=== PATIENT | female | born 1935 | race Caucasian/White ===

== ENCOUNTER → 2018-01-28 | Outpatient (CLI) | payer MEDICARE ==
[~2018-01-28] MED LIST: ACE500 PO; AMLO2.5T75 PO; ASCO500C9 PO; ASP81 PO; ASPI-1471 PO; ATOR40TA69 PO; BACDS PO; EZET1TAB53 PO; HCTZ25 PO; LANI SUBQ; LEVO-85 PO; LOR5/325 PO; LOSA100T67 PO; MAGN500C10 PO; METO25TA93 PO; NIA500 PO; NOVOLOG SUBQ; OMEG500C5 PO; ONDA4TAB97 PO; PREG50CA48 PO; TRAM-420 PO; [UNRECOGNIZED DRUG - CODE] PO; [UNRECOGNIZED DRUG - OTHER]; [UNRECOGNIZED DRUG - OTHER]
[2018-01-28 11:23] LABS: LDL CHOLESTEROL 201 mg/dl
[2018-01-28 11:24] LABS: PLATELET COUNT, AUTOMATED 415 K/uL (150-450)
== END ==
LOC: LAB 10:28
PROVIDERS: ATTEND Physician Assistant Medical
DX: E78.00 Pure hypercholesterolemia, unspecified (principal); E11.9 Type 2 diabetes mellitus without complications; Z79.4 Long term (current) use of insulin
CPT/HCPCS: 36415; 82040; 82043; 82247; 82310; 82374; 82435; 82465; 82565; 82947; 83036; 83718; 84075; 84132; 84155; 84295; 84450; 84460; 84478; 84520; 85025

== ENCOUNTER → 2018-06-30 | Outpatient (CLI) | payer MEDICARE | LOC: LAB 09:39 | PROVIDERS: ATTEND Physician Assistant Medical | DX: E11.42 Type 2 diabetes mellitus with diabetic polyneuropathy (principal); Z79.4 Long term (current) use of insulin | CPT/HCPCS: 36415; 82040; 82247; 82310; 82374; 82435; 82565; 82947; 83036; 84075; 84132; 84155; 84295; 84450; 84460; 84520 ==

== ENCOUNTER 2018-08-08 12:22 | Emergency (ER) | payer MEDICARE ==
[~2018-08-08 12:22] MED LIST changes: -GABA-549 PO
--- NOTE | 2018-08-08 12:37 | EKG ---
FACILITY: [facility] - [place] PATIENT NAME: DWIGHT POSADAS : [id number] MR: [id number] V: [id number] EXAM DATE: ORDERING PHYSICIAN: MORENITA MOSQUERA TECHNOLOGIST: Test Reason : 3RD DEGREE BLOCK Blood Pressure : / mmHG Vent. Rate : 027 BPM Atrial Rate : 357 BPM P-R Int : 000 ms QRS Dur : 130 ms QT Int : 734 ms P-R-T Axes : 000 104 078 degrees QTc Int : 491 ms 3rd degree heart block with ventricular escape rhythm Nonspecific intraventricular conduction delay Abnormal ECG When compared with ECG of 28-SEP-2017 15:06, 3rd degree block replaced NSR Vent. rate has decreased BY 32 BPM Ventricular escape beat replaced LBBB Confirmed by Deniz Morales ([id number]) on 08/08/2018 6:40:48 PM Referred By: Confirmed By:Deniz Deutsch
[2018-08-08] MEDS ORDERED: fentaNYL CITR 100 MCG/2 ML AMP ONE (13:25)
--- NOTE | 2018-08-08 13:45 | ER Report ---
History and Physical Time Seen By MD: 12:15 Hx. of Stated Complaint: Patient not feeling well. 3rd degree heartblock per EMS HPI/ROS CHIEF COMPLAINT: Third-degree AV block HISTORY OF PRESENT ILLNESS: Patient is an 83-year-old female who lives near [facility] outside of the [place]. She was seen immediately upon arrival Today patient developed syncopal-type symptoms dizziness and some chest pain with exertion. The ambulance was called. EKG that was performed on site showed a third-degree AV block with a ventricular rate of 27 bpm. Trial of atropine was done without any change in perceived apical rate She was placed on pacer pads but because she was mentating well with a good blood pressure they were not initiated. Patient arrived to the emergency department mentating well complaining of feeling syncopal mild chest pressure and most concerning "I feel like I'm going to ". Patient does have a cardiac history and history of insulin-dependent diabetes along with hypertension. History was limited due to severity of patient in emergent nature of patient. Patient was unsure of her medication list however this was looked up by a different provider and she is not on any anticoagulation. REVIEW OF SYSTEMS: Constitutional: No fever, no chills. Cardiovascular: Mild chest pain, no palpitations Respiratory: Dyspnea on exertion Gastrointestinal: No abdominal pain Neurological: Near syncope The review of systems not performed due to the emergent nature of patient. Allergies: Coded Allergies: lisinopril (Verified Allergy, Intermediate, unknown, 09/28/17) Home Meds Active Scripts Hydrocodone Bit/Acetaminophen (HYDROCODON-ACETAMINOPHEN 5-325) 1 Each Tablet, 1 EACH PO Q4-6H, #20 TAKE ONE TABLET BY MOUTH EVERY 4-6 HOURS NEEDED FOR PAIN Prov:JAMAR JUDGE DO 03/05/15 Insulin Aspart (NOVOLOG) 100 Unit/Ml Soln, 15 UNIT SUBQ TID, #0 Prov:LIANA CIHNCHILLA MD 09/24/14 Insulin Glargine (LANTUS) 100 Unit/Ml Soln, 26 UNIT SUBQ BID, #0 Prov:LIANA CHINCHILLA MD 09/24/14 Reported Medications Gabapentin (GABAPENTIN) 300 Mg Capsule, 300 MG PO BID, CAPSULE 08/08/18 Ascorbic Acid (VITAMIN C) 500 Mg Capsule.er, 500 MG PO DAILY 09/24/14 Tramadol Hcl (TRAMADOL HCL) 50 Mg Tablet, 50 MG PO Q6H PRN for PAIN 09/24/14 Magnesium Oxide (MAGNESIUM) 500 Mg Capsule, 500 MG PO DAILY, CAPSULE 09/24/14 Losartan Potassium (LOSARTAN POTASSIUM) 100 Mg Tablet, 100 MG PO QDAY 09/24/14 [place]-3 Fatty Acids (FISH OIL) 500 Mg Capsule.dr, 1000 MG PO BID 09/24/14 Atorvastatin Calcium (ATORVASTATIN CALCIUM) 40 Mg Tablet, 1 TAB PO HS, TAB TAKE ONE TABLET BY MOUTH ONCE A DAY AT BED TIME 09/24/14 Aspirin (ASPIR 81) 81 Mg Tablet.dr, 81 MG PO QDAY, TAB 09/24/14 Metoprolol Tartrate (Metoprolol Tartrate) 25 Mg Tablet, 25 MG PO DAILY, 0 Refills One tab am and two tabs pm. 03/14/11 Discontinued Reported Medications Pregabalin (LYRICA) 50 Mg Capsule, 50 MG PO TID, CAPSULE 09/24/14 Hydrochlorothiazide (Hydrochlorothiazide) 25 Mg Tab, 12.5 MG PO QDAY, 0 Refills 03/14/11 Discontinued Scripts Levofloxacin 500 Mg Tab (LEVAQUIN 500 MG TAB) 500 Mg Tablet, 500 MG PO DAILY, #6 TAB Prov:NEERAJ VAZQUEZ 09/28/17 Ondansetron Hcl (ZOFRAN) 4 Mg Tablet, 4 MG PO Q8-12H, #10 Prov:JAMAR JUDGE DO 03/05/15 Past Medical/Surgical History Past medical history for coronary artery disease, insulin-dependent diabetes, hypertension, history of hysterectomy and appendectomy. Please past medical history not obtained due to the emergent nature of patient Hx Smoking: No Smoking Status: Never Smoker Exposure to Second Hand Smoke?: No Hx Substance Use Disorder: No Hx Alcohol Use: No Constitutional Vital Sign - Last 24 Hours 08/08/18 08/08/18 08/08/18 08/08/18 12:22 12:30 12:31 12:40 Temp 98.2 Pulse 27 28 Resp 14 18 B/P (MAP) 123/41 168/46 (86) Pulse Ox 92 89 O2 Delivery Nasal Cannula O2 Flow Rate 2.0 08/08/18 08/08/18 08/08/18 08/08/18 12:42 12:45 12:50 13:00 Pulse ??? 28 Resp 27 18 B/P (MAP) 140/40 (73) 134/44 (74) 141/99 (113) Pulse Ox 92 97 08/08/18 08/08/18 08/08/18 08/08/18 13:10 13:12 13:15 13:19 Pulse 27 Resp 10 B/P (MAP) 52/38 (43) 134/128 (130) 148/117 (127) Pulse Ox 98 08/08/18 08/08/18 08/08/18 08/08/18 13:30 13:40 13:45 13:50 Pulse 77 79 Resp 54 14 B/P (MAP) 191/77 (115) 142/60 (87) 142/62 (88) Pulse Ox 90 100 08/08/18 08/08/18 08/08/18 08/08/18 14:00 14:15 14:20 14:30 Pulse 78 79 Resp 12 13 0 B/P (MAP) 142/69 (93) 150/70 (96) 142/64 (90) Pulse Ox 97 100 100 Physical Exam General/Constitutional: Patient is awake, alert, she currently is mentating well and in no respiratory distress Head: Normocephalic and atraumatic. Eyes: Conjunctival clear, Pupils are equal and reactive to light. Extraocular muscles are intact and symmetrical. Sclera are clear and anicteric. Oropharyngeal: Mucous membranes are moist. There is no pharyngeal erythema or exudate. There are no palatal petechiae. Uvula is midline and symmetrical. Neck: Supple, no adenopathy. Cardiovascular: Heart is severely bradycardic with a ventricular rate of 28 bpm, pulses are palpable to the radial arteries bilaterally into the dorsalis pedis arteries bilaterally Pulmonary: Lungs are clear to auscultation bilaterally. There are no wheezes, rales, or rhonchi. Chest rise is symmetrical Abdomen: Soft, nontender, no guarding or peritoneal signs. Extremities: No gross deformities, No peripheral cyanosis. Able to move all 4 extremities. Neuro: Alert and oriented X3, Skin: No rashes, skin is warm dry and well perfused. Medical Decision Making Data Points Result Diagram: 08/08/18 1346 08/08/18 1346 Laboratory Hematology Test 08/08/18 13:46 Red Blood Count 4.24 M/uL (4.17-5.56) Mean Corpuscular Volume 88.9 fL (80.0-96.0) Mean Corpuscular Hemoglobin 29.3 pg (26.0-33.0) Mean Corpuscular Hemoglobin Concent 33.0 g/dL (32.0-36.0) Red Cell Distribution Width 14.9 % (11.5-14.5) Mean Platelet Volume 8.4 fL (7.2-11.1) Neutrophils (%) (Auto) 83.1 % (39.4-72.5) Lymphocytes (%) (Auto) 11.4 % (17.6-49.6) Monocytes (%) (Auto) 4.3 % (4.1-12.4) Eosinophils (%) (Auto) 1.0 % (0.4-6.7) Basophils (%) (Auto) 0.2 % (0.3-1.4) Nucleated RBC Relative Count (auto) 0.0 /100WBC Neutrophils # (Auto) 14.8 K/uL (2.0-7.4) Lymphocytes # (Auto) 2.0 K/uL (1.3-3.6) Monocytes # (Auto) 0.8 K/uL (0.3-1.0) Eosinophils # (Auto) 0.2 K/uL (0.0-0.5) Basophils # (Auto) 0.0 K/uL (0.0-0.1) Nucleated RBC Absolute Count (auto) 0.01 K/uL Prothrombin Time 13.2 seconds (12.0-14.4) Prothromb Time International Ratio 1.00 Activated Partial Thromboplast Time 24 seconds (23-35) Sodium Level 135 mmol/L (137-145) Potassium Level 4.8 mmol/L (3.5-5.0) Chloride Level 98 mmol/L (98-107) Carbon Dioxide Level 30 mmol/L (22-31) Blood Urea Nitrogen 19 mg/dl (7-18) Creatinine 0.60 mg/dl (0.52-1.04) Glomerular Filtration Rate Calc > 60.0 Random Glucose 184 mg/dl (75-110) Calcium Level 7.7 mg/dl (8.4-10.2) Total Bilirubin 0.2 mg/dl (0.2-1.3) Aspartate Amino Transf (AST/SGOT) 17 U/L (0-35) Alanine Aminotransferase (ALT/SGPT) 23 U/L (0-56) Alkaline Phosphatase 90 U/L (0-126) Troponin I 0.015 ng/ml B-Type Natriuretic Peptide 781 pg/ml (0-100) Total Protein 6.0 g/dl (6.3-8.2) Albumin 3.1 g/dl (3.5-5.0) Chemistry Test 08/08/18 13:46 White Blood Count 17.8 k/uL (4.5-11.0) Red Blood Count 4.24 M/uL (4.17-5.56) Hemoglobin 12.4 g/dL (12.0-16.0) Hematocrit 37.7 % (34.0-47.0) Mean Corpuscular Volume 88.9 fL (80.0-96.0) Mean Corpuscular Hemoglobin 29.3 pg (26.0-33.0) Mean Corpuscular Hemoglobin Concent 33.0 g/dL (32.0-36.0) Red Cell Distribution Width 14.9 % (11.5-14.5) Platelet Count 284 K/uL (150-450) Mean Platelet Volume 8.4 fL (7.2-11.1) Neutrophils (%) (Auto) 83.1 % (39.4-72.5) Lymphocytes (%) (Auto) 11.4 % (17.6-49.6) Monocytes (%) (Auto) 4.3 % (4.1-12.4) Eosinophils (%) (Auto) 1.0 % (0.4-6.7) Basophils (%) (Auto) 0.2 % (0.3-1.4) Nucleated RBC Relative Count (auto) 0.0 /100WBC Neutrophils # (Auto) 14.8 K/uL (2.0-7.4) Lymphocytes # (Auto) 2.0 K/uL (1.3-3.6) Monocytes # (Auto) 0.8 K/uL (0.3-1.0) Eosinophils # (Auto) 0.2 K/uL (0.0-0.5) Basophils # (Auto) 0.0 K/uL (0.0-0.1) Nucleated RBC Absolute Count (auto) 0.01 K/uL Prothrombin Time 13.2 seconds (12.0-14.4) Prothromb Time International Ratio 1.00 Activated Partial Thromboplast Time 24 seconds (23-35) Glomerular Filtration Rate Calc > 60.0 Calcium Level 7.7 mg/dl (8.4-10.2) Total Bilirubin 0.2 mg/dl (0.2-1.3) Aspartate Amino Transf (AST/SGOT) 17 U/L (0-35) Alanine Aminotransferase (ALT/SGPT) 23 U/L (0-56) Alkaline Phosphatase 90 U/L (0-126) Troponin I 0.015 ng/ml B-Type Natriuretic Peptide 781 pg/ml (0-100) Total Protein 6.0 g/dl (6.3-8.2) Albumin 3.1 g/dl (3.5-5.0) Coagulation Test 08/08/18 13:46 Prothrombin Time 13.2 seconds Prothromb Time International Ratio 1.00 Activated Partial Thromboplast Time 24 seconds EKG/Imaging EKG Interpretation Initial EKG obtained at 1233 PM shows a wide complex bradycardia with a ventricular rate of 27 bpm Repeat EKG obtained at 1340 PM shows a 100% ventricularly paced rhythm at 80 bpm. This was obtained after transvenous pacer placement. Imaging FACILITY: [facility] - [place] PATIENT NAME: Lisbet Lopez : 1935 MR: [id number] V: [id number] EXAM DATE: [id number] ORDERING PHYSICIAN: MORENITA MOSQUERA TECHNOLOGIST: Location: Patient: Lisbet Lopez : 1935 Visit/Account:[id number] Date of Sevice: 08/08/2018 Exam type: CHEST SINGLE AP History: Chest pain, pacemaker placement Comparison: September 28, 2017. Findings: Catheter/electrode projects over the right paratracheal region and right heart border. The electrode projects over the midline of the lower cardiac silhouette. There are prominent interstitial markings of the lungs which may be related to mild interstitial pulmonary edema. Central peribronchial thickening appears more prominent when compared the prior study. Also more prominent is patchy airspace consolidation in the medial right lung base. There is elevation right hemidiaphragm slightly increased in the interim. The cardiac silhouette is normal in size. No pneumothorax is seen IMPRESSION: 1. Increasing elevation right hemidiaphragm and increasing airspace consolidation the medial right lung base consistent with infiltrate and/or atelectasis Mild pulmonary vascular congestion is now evident Peribronchial thickening appears more prominent which could be related to an acute Bronchial inflammatory process Catheter/electrode projects in the right paratracheal region and over the right heart border with the distal tip electrode projecting in the midline over the lower cardiac silhouette. No pneumothorax seen Report Dictated By: Negra Alatorre MD at 08/08/2018 1:57 PM Report E-Signed By: Negra Alatorer MD at 08/08/2018 2:00 PM ED Course/Re-evaluation ED Course 08/08/2018 1:48:21 pm patient became obtunded and not responding to verbal stimuli heart rate dropped below 10. Patient was transcutaneously paced at 80 bpm at 70 mA with return of pulse to approximately 80 bpm and with return of mentation. Right internal jugular 9 Cambodian catheter was placed. Please see p rocedure note. The catheter was advanced until approximately 35-40 cm there was no capture noted at 20 mA. An x-ray was done which showed the tip of the catheter in the entrance to the pulmonary artery. The catheter was with true to 25 cm and the balloon deflated again again no ventricular capture was seen. Chest x-ray was performed which showed the tip of the catheter in the right atrium. The catheter was then advanced to 30 cm. Balloon was again deflated and at this point we received good ventricular capture patient is stabilized with a heart rate of 80 bpm and current blood pressure 142/60. Please note that all this procedure was done completely sterilely with strict adherence to sterile surgical technique. Procedure: Central line placement. This procedure was emergent but verbal consent was obtained from the patient with the risks explained to be bleeding, infection, and collapsed lung; maximal sterile barrier technique was uses including cap, gown, sterile gloves, large sheet, hand washing and chlorhexidine prep. The area anesthetized with 1% lidocaine. The right internal jugular was identified using ultrasound guidance and then punctured with a 19 gauge finder needle, then a wire introducer was placed, a 9 Cambodian Cordis was placed using Seldinger technique. There were no complications. Blood return low pressure, dark blood. Patient tolerated procedure well. CXR results: Appropriate line placement, and no pneumothorax. Xray was interpreted by myself. Radiologist interpretation is pending. The procedure was performed by myself. Procedure: Transcutaneous pacing: After the right internal jugular central line was placed and while prepping for transvenous pacing the patient became obtunded heart rate dropped below 10 bpm. Patient was started on transcutaneous pacing for rescue pacing with good effect. Patient had return of pulse at approximately 80 bpm using 70 mA of electrical current using the transcutaneous pacer. Patient immediately had return of pulses along with mentation and complained of discomfort every time she felt the the pacer discharge. Procedure: Transvenous pacing: After the balloon was verified to be intact, the balloon was deflated. The pacer wire was then floated through the 9 Cambodian pacer aperture sterilely. At 20 cm the balloon was inflated. No ventricular capture was noted on EKG. The pacer was floated to 40 cm without noticing any ventricular capture. The balloon was deflated. Again no ventricular capture noted. An initial chest x-ray showed placement of the tip of the pacer wire in the pulmonary artery. The pacemaker was then sterilely withdrawn to 25 cm. no ventricular capture was noted. A 2nd chest x-ray was obtained which showed the tip of the catheter just above the atrio- ventricular junction. The balloon was again reinflated and the catheter was advanced 5 cm to the 30 cm willi sterilely. The balloon was subsequently deflated and ventricular capture occurred. Pacer spikes captured 100% of the time on the monitor. A repeat EKG showed electronic ventricular pacer with a ventricular rate of 79 bpm with 100% capture. Chest x- ray confirmed the tip of the catheter in the right ventricle. The pulse generato r was decreased to the threshold of approximately 8 mA with loss of capture. The pacer was then turned up to 10 mA with 100% capture and At that amp ridge. Patient tolerated the entire procedure well. 08/08/2018 2:28:04 pm I [place] [facility] [place] History physical exam and all pertinent data along with hospital course were reviewed. Dr. Edge appreciated placement of transvenous pacer. Feels the patient can go to the hospitalist and the ICU she has subsequently stabilized. I spoke with who is the accepting hospitalist agreed to accept the steven ent after again history physical exam weren't department course were reviewed. Agents status is guarded but stable flight was called to effectively transport the patient in the safest manner and the quickest time. I did speak with the patient's along with the patient no questions or concerns at this time. Total critical care time excluding procedures was 60 minutes. Decision to Disposition Date: Aug 08, 2018 Decision to Disposition Time: 14:29 Depart Departure Latest Vital Signs Vital Signs Date Time Temp Pulse Resp B/P (MAP) Pulse Ox O2 Delivery O2 Flow Rate FiO2 08/08/18 14:30 0 142/64 (90) 100 08/08/18 14:15 79 08/08/18 12:31 2.0 08/08/18 12:22 98.2 Nasal Cannula Impression: Primary Impression: Third degree atrioventricular block Additional Impressions: Cardiogenic shock Paced cardiac rhythm Condition: Improved Disposition: XFER TO [facility] (To Dr Watters at [facility]) Referrals: [facility] (PCP) Problem Qualifiers MORENITA MOSQUERA MD Aug 08, 2018 13:45
[2018-08-08] MEDS ORDERED: fentaNYL CITR 100 MCG/2 ML AMP IVP ONE (13:50)
[2018-08-08] MEDS ORDERED: GABA-549 PO (13:57)
[2018-08-08 14:00] LABS: PLATELET COUNT, AUTOMATED 284 K/uL (150-450)
--- NOTE | 2018-08-08 14:04 | RADIOLOGY IMAGING REPORT ---
FACILITY: [facility] [place] PATIENT NAME: Lisbet Lopez : 1935 MR: [id number] V: [id number] EXAM DATE: ORDERING PHYSICIAN: MORENITA MOSQUERA TECHNOLOGIST: Location: [facility] [place] Patient: Lisbet Lopez : 1935 Visit/Account:[id number] Date of Sevice: 08/08/2018 Exam type: CHEST SINGLE AP History: Chest pain, pacemaker placement Comparison: September 28, 2017. Findings: Catheter/electrode projects over the right paratracheal region and right heart border. The electrode projects over the midline of the lower cardiac silhouette. There are prominent interstitial marking s of the lungs which may be related to mild interstitial pulmonary edema. Central peribronchial thic kening appears more prominent when compared the prior study. Also more prominent is patchy airspace consolidation in the medial right lung base. There is elevation right hemidiaphragm slightly increas ed in the interim. The cardiac silhouette is normal in size. No pneumothorax is seen IMPRESSION: 1. Increasing elevation right hemidiaphragm and increasing airspace consolidation the medial right l vilma base consistent with infiltrate and/or atelectasis Mild pulmonary vascular congestion is now evident Peribronchial thickening appears more prominent which could be related to an acute Bronchial inflammatory process Catheter/electrode projects in the right paratracheal region and over the right heart border with the distal tip electrode projecting in the midline over the lower cardiac silhouette. No pneumothorax s een Report Dictated By: Negra Alatorre MD at 08/08/2018 1:57 PM Report E-Signed By: Negra Alatorre MD at 08/08/2018 2:00 PM WSN:[email or web address]
[2018-08-08] MEDS ORDERED: EMS NS 0.9%(*) 1000 ML BAG 1,000 ML IV ONE (14:15)
[2018-08-08] MEDS ORDERED: NS(*) 0.9% 1000 ML BAG 1,000 ML IV ONE (14:15)
[2018-08-08 14:30] VITALS: BP 142/64
--- NOTE | 2018-08-08 14:58 | EKG ---
FACILITY: [facility] - [place] PATIENT NAME: DWIGHT POSADAS : [id number] MR: [id number] V: [id number] EXAM DATE: ORDERING PHYSICIAN: MORENITA MOSQUERA TECHNOLOGIST: Test Reason : POST PACEMAKER Blood Pressure : / mmHG Vent. Rate : 079 BPM Atrial Rate : 079 BPM P-R Int : 000 ms QRS Dur : 166 ms QT Int : 498 ms P-R-T Axes : 000 -81 112 degrees QTc Int : 571 ms Electronic ventricular pacemaker When compared with ECG of 08-AUG-2018 12:33, Electronic ventricular pacemaker has replaced 3rd degree block Vent. rate has increased BY 52 BPM Confirmed by Deniz Morales ([id number]) on 08/08/2018 6:41:45 PM Referred By: Confirmed By:Deniz Deutsch
== END 2018-08-08 15:04 | disposition short-term general hospital (02) ==
LOC: ER 12:29
DX: I44.2 Atrioventricular block, complete (principal); R57.0 Cardiogenic shock
CPT/HCPCS: 33210; 71045; 83880; 84484; 85025; 85610; 85730; 92953; 93005; 96361; 96374; 99291; J3010; J7030; 82040; 82247; 82310; 82374; 82435; 82565; 82947; 84075; 84132; 84155; 84295; 84450; 84460; 84520

== ENCOUNTER → 2018-08-08 | Outpatient (CLI) | payer MEDICARE ==
[~2018-08-08] MED LIST changes: +GABA-549 PO; -LOSA100T67 PO; +LOSA100T69 PO
== END ==
LOC: AMB 11:29
PROVIDERS: ATTEND Nurse Practitioner
DX: R53.1 Weakness (principal); R06.00 Dyspnea, unspecified; G62.9 Polyneuropathy, unspecified; I44.2 Atrioventricular block, complete
CPT/HCPCS: A0425; A0433

== ENCOUNTER → 2018-08-08 | Outpatient (REF) | LOC: AMB 13:57 | PROVIDERS: ATTEND Nurse Practitioner | DX: I45.9 Conduction disorder, unspecified (principal) ==